=== PATIENT | male | born 1945 | race Hispanic/Latino ===

== ENCOUNTER 2016-06-13 17:20 | Inpatient (IN) | payer MEDICARE ==
[2016-06-13 17:24] VITALS: BMI 40.4
[2016-06-13 18:09] LABS: ADD MANUAL DIFF? NO
--- NOTE | 2016-06-13 18:13 | ED PDOC ---
Arrival/HPI <Jordan Perez DO - Last Filed: 06/13/16 20:26> - General Historian: Patient, Spouse - History of Present Illness Symptom Onset: Gradual Symptom Course: Worsening <VenitaJonna - Last Filed: 06/13/16 21:14> - General Chief Complaint: Shortness Of Breath Time Seen by Provider: 06/13/16 17:54 - History of Present Illness Narrative History of Present Illness (Text): 06/13/16 18:30 70yo M w h/o CHF (EF 50% on cath 07/2014), CAF on Coumadin, Hypertension, NIDDM2 , mild thalamic hemorrhage in the past not requiring surgical intervention, mod , EtOH abuse presented to ER with 2 month h/o increasingly worsening SOB. Patient and , who is at bedside, admit to clear productive cough during this time. Patient admits to chronic orthopnea, states he sleeps sitting in chair. He admits to BL LE swelling x 3 years, states has not worsened in the past 1-2 months. Denies CP, abd pain, n/v/d/c, fevers, chills, rashes, headache , dizziness, confusion, palpitations. (Jonna Nathan) Past Medical History - Provider Review Nursing Documentation Reviewed: Yes - Travel History Have you recently traveled outside [place] w/in the past 3 mons?: No - Cardiac Hx Cardiac Disorders: Yes Hx Hypertension: Yes Hx Pacemaker: No - Pulmonary Hx Respiratory Disorders: Yes Hx Asthma: Yes Hx Chronic Obstructive Pulmonary Disease (COPD): Yes - Neurological Hx Neurological Disorder: No Hx Paralysis: No - HEENT Hx HEENT Disorder: No Hx Cataracts: No - Renal Hx Renal Disorder: No - Endocrine/Metabolic Hx Endocrine Disorders: Yes Hx Diabetes Mellitus Type 2: Yes - Hematological/Oncological Hx Blood Disorders: No Hx Blood Transfusions: No - Integumentary Hx Dermatological Disorder: No - Musculoskeletal/Rheumatological Hx Musculoskeletal Disorders: No - Gastrointestinal Hx Gastrointestinal Disorders: No - Genitourinary/Gynecological Hx Genitourinary Disorders: No - Psychiatric Hx Psychophysiologic Disorder: No Hx Anxiety: No Hx Emotional Abuse: No Hx Physical Abuse: No Hx Substance Use: No - Surgical History Hx Cataract Extraction: Yes Hx Joint Replacement: Yes Hx Orthopedic Surgery: Yes - Anesthesia Hx Anesthesia Reactions: No Hx Malignant Hyperthermia: No - Suicidal Assessment Feels Threatened In Home Enviroment: No <Jonna Nathan - Last Filed: 06/13/16 21:14> Family/Social History - Physician Review Nursing Documentation Reviewed: Yes Family/Social History: Diabetes, Hypertension, CAD/[place] Smoking Status: Former Smoker (quit ~30 years ago) Hx Alcohol Use: Yes (social) Frequency of alcohol use: Socially Hx Substance Use: No Hx Substance Use Treatment: No <Jonna Nathan - Last Filed: 06/13/16 21:14> Allergies/Home Meds <Chris Jordan - Last Filed: 06/13/16 20:26> <Jonna Nathan - Last Filed: 06/13/16 21:14> Allergies/Adverse Reactions: Allergies No Known Allergies Allergy (Verified 06/13/16 17:24) Home Medications: Home Meds Medication Instructions Recorded Confirmed Furosemide [Lasix] 80 mg PO DAILY 07/31/14 06/13/16 Warfarin [Coumadin] 7.5 mg PO DAILY 07/31/14 06/13/16 Metformin HCl [Glucophage] 1,000 mg PO BID 06/13/16 06/13/16 Metoprolol Tartrate [Lopressor] 25 mg PO DAILY 06/13/16 06/13/16 Simvastatin [Zocor] 40 mg PO DAILY 06/13/16 06/13/16 Review of Systems - Physician Review All systems were reviewed & negative as marked: Yes - Review of Systems Constitutional: absent: Fatigue, Fevers Eyes: Normal. absent: Vision Changes ENT: Normal Respiratory: SOB, Cough, Sputum (clear) Cardiovascular: Edema (BL LE edema, chronic, no changes x 3 years), ESPINO, Orthopnea (sleeps in chair). absent: Chest Pain, Palpitations, Calf Pain Gastrointestinal: absent: Abdominal Pain, Constipation, Diarrhea, Nausea, Vomiting, Hematochezia, Hematemesis Genitourinary Male: Normal. absent: Dysuria, Frequency Musculoskeletal: Back Pain (low back -- mild, chronic, no changes). absent: Neck Pain Skin: Skin Lesions (heamgioma L forearm). absent: Rash, Laceration Neurological: Normal. absent: Headache, Dizziness Endocrine: absent: Diaphoresis Hemo/Lymphatic: Normal Psychiatric: Normal <Jonna Nathan - Last Filed: 06/13/16 21:14> Physical Exam Vital Signs Reviewed: Yes Temperature: Afebrile Blood Pressure: Hypertensive Pulse: Tachycardic Respiratory Rate: Normal Appearance: Positive for: Non-Toxic, Comfortable Pain Distress: None Mental Status: Positive for: Alert and Oriented X 3 - Systems Exam Head: Present: Atraumatic, Normocephalic Pupils: Present: PERRL Extroacular Muscles: Present: EOMI Conjunctiva: Present: Normal. No: Icteric Mouth: Present: Moist Mucous Membranes Neck: Present: Normal Range of Motion. No: Meningeal Signs, JVD Respiratory/Chest: Present: Decreased Breath Sounds, Rales (BL LL L>R). No: Clear to Auscultation, Respiratory Distress, Accessory Muscle Use Cardiovascular: Present: Irregular Rhythm (a fib rate 110s), Tachycardic Abdomen: Present: Normal Bowel Sounds, Other (obese). No: Tenderness, Peritoneal Signs, Rebound, Guarding Upper Extremity: Present: Normal Inspection. No: Cyanosis, Edema Lower Extremity: Present: Normal Inspection, Edema (3+ BL LE pitting edema). No : CALF TENDERNESS Neurological: Present: GCS=15, CN II-XII Intact, Speech Normal Skin: Present: Warm, Dry, Normal Color, Other (LUE hemagioma) Psychiatric: Present: Alert, Oriented x 3, Normal Insight, Normal Concentration <Jonna Nathan - Last Filed: 06/13/16 21:14> Vital Signs Temp Pulse Resp BP Pulse Ox 06/13/16 19:10 97 H 25 H 166/102 H 95 06/13/16 17:42 24 99 06/13/16 17:32 98.5 F 108 H 20 154/106 H 95 Medical Decision Making <Jordan Perez DO - Last Filed: 06/13/16 20:26> Re-evaluation Time: 20:05 Reassessment Condition: Re-examined, Improved - Lab Interpretations I have reviewed the lab results: Yes - EKG Interpretation Interpreted by ED Physician: Yes Type: 12 lead EKG <Jonna Nathan - Last Filed: 06/13/16 21:14> ED Course and Treatment: A 70 year old male with shortness of breath. In agreement with resident note, which includes further HPI details. Patient was seen and evaluated with resident , came up with plan and treatment together. (Jordan Perez DO) 06/13/16 18:56 70 yo M w h/o NIDDM2, CHF, COPD, previous hemorrhagic thalamic CVA, CAF on Coumadin, Hypertension presents with 2 month h/o worsening SOB. Labs, CXR, EKG. (Jonna Nathan) - Lab Interpretations Lab Results: 06/13/16 17:35 06/13/16 17:35 Lab Results 06/13/16 18:20: PT 23.4 H, INR 2.17 H, APTT 36.4 H 06/13/16 17:35: Sodium 142, Potassium 5.0, Chloride 107, Carbon Dioxide 24, Anion Gap 16, BUN 29 H, Creatinine 1.2, Est GFR ( Amer) > 60, Est GFR ( Non-Af Amer) > 60, Random Glucose 117 H, Calcium 9.5, Magnesium 1.9, Total Bilirubin 1.1, AST 32, ALT 41, Alkaline Phosphatase 159 H, Lactate Dehydrogenase 521, Total Creatine Kinase 57, Troponin I 0.05, NT-Pro-B Natriuret Pep 6250 H, Total Protein 8.6 H, Albumin 4.6, Globulin 4.0, Albumin/ Globulin Ratio 1.2 06/13/16 17:35: Urine Color Yellow, Urine Appearance Sl cloudy, Urine pH 6.0, Ur Specific Siler >= 1.030, Urine Protein >=300 H, Urine Glucose (UA) Negative , Urine Ketones Negative, Urine Blood Small H, Urine Nitrate Negative, Urine Bilirubin Negative, Urine Urobilinogen 0.2, Ur Leukocyte Esterase Negative, Urine RBC 2 - 5, Urine WBC 0 - 2, Ur Epithelial Cells None, Urine Bacteria Large 06/13/16 17:35: WBC 8.4, RBC 4.12, Hgb 13.0 L, Hct 39.6 L, MCV 96.1, MCH 31.6, MCHC 32.8, RDW 14.6 H, Plt Count 192, MPV 10.4, Gran % 63.9, Lymph % (Auto) 20.2 L, [place] % (Auto) 7.1 H, Eos % (Auto) 7.7 H, Baso % (Auto) 1.1, Gran # 5.35 , Lymph # 1.7, [place] # 0.6, Eos # 0.6, Baso # 0.09 06/13/16 15:00: Alcohol, Quantitative < 10 - RAD Interpretation Radiology Orders: 06/13/16 17:55 CHEST PORTABLE [RAD] Stat - EKG Interpretation EKG Interpretation (Text): 06/13/16 21:12 A fib RVR rate 111bpm, nonspecific ST/T changes (Jonna Nathan) - Medication Orders Current Medication Orders: Discontinued Medications Furosemide (Lasix) 40 mg IVP STAT STA Stop: 06/13/16 19:00 Last Admin: 06/13/16 19:11 Dose: 40 mg - PA / DATA ANALYSIS MANAGER / Resident Statement CAESAR has reviewed & agrees with the documentation as recorded. / has examined the patient and agrees with the treatment plan. - Scribe Statement The provider has reviewed the documentation as recorded by the Scribe <Jordan Perez DO - Last Filed: 06/13/16 20:26> - PA / DATA ANALYSIS MANAGER / Resident Statement CAESAR has reviewed & agrees with the documentation as recorded. CAESAR has examined the patient and agrees with the treatment plan. <Jonna Nathan - Last Filed: 06/13/16 21:14> - Scribe Statement Aubrie Becker Provider Scribe Attestation: All medical record entries made by the Scribe were at my direction and personally dictated by me. I have reviewed the chart and agree that the record accurately reflects my personal performance of the history, physical exam, medical decision making, and the department course for this patient. I have also personally directed, reviewed, and agree with the discharge instructions and disposition. (Jordan Perez DO) Disposition/Present on Arrival <Jordan Perez DO - Last Filed: 06/13/16 20:26> - Present on Arrival Any Indicators Present on Arrival: No History of DVT/PE: No History of Uncontrolled Diabetes: No Urinary Catheter: No History of Decub. Ulcer: No History Surgical Site Infection Following: None - Disposition Have Diagnosis and Disposition been Completed?: Yes Disposition Time: 19:00 Patient Plan: Admission <Jonna Nathan - Last Filed: 06/13/16 21:14> - Disposition Diagnosis: CHF exacerbation Disposition: HOSPITALIZED Patient Problems: Current Active Problems Problem Status Onset CHF exacerbation Acute Condition: FAIR Discharge Instructions (ExitCare): Heart Failure (ED) Referrals: Martin Jones MD [Primary Care Provider] - Follow up with primary
[2016-06-13 18:33] LABS: URINE BILIRUBIN NEGATIVE (NEGATIVE); URINE BLOOD SMALL (NEGATIVE); URINE GLUCOSE (UA) NEGATIVE (NEGATIVE); URINE KETONE NEGATIVE (NEGATIVE); URINE LEUKOCYTE ESTERASE NEGATIVE Leu/uL (NEGATIVE); URINE PROTEIN >=300 mg/dL (<30 mg/dL); URINE UROBILINOGEN 0.2 E.U./dL (<1 E.U./dL)
[2016-06-13 18:35] LABS: URINE APPEARANCE SL CLOUDY (CLEAR); URINE COLOR YELLOW (YELLOW)
[2016-06-13 18:40] LABS: BASO # 0.09 K/mm3 (0.0-2.0); BASO % 1.1 % (0.0-3.0); EOS # 0.6 (0.0-0.7); EOS % 7.7 % (1.5-5.0); GRAN # 5.35 (1.4-6.5); GRAN % 63.9 % (50.0-68.0); HEMATOCRIT 39.6 % (42.0-52.0); LYMPH # 1.7 (1.2-3.4); LYMPH % 20.2 % (22.0-35.0); MEAN CELL VOLUME 96.1 fL (80.0-105.0); MEAN CORPUSCULAR HEMOGLOBIN 31.6 pg (25.0-35.0); MEAN CORPUSCULAR HGB CONC 32.8 g/dl (31.0-37.0); MEAN PLATELET VOLUME 10.4 fl (7.0-11.0); MONO # 0.6 (0.1-0.6); MONO % 7.1 % (1.0-6.0); PLATELET COUNT 192 10^3/uL (120.0-450.0); RED CELL DISTRIBUTION WIDTH 14.6 % (11.5-14.5); WHITE BLOOD COUNT 8.4 10^3/ul (4.5-11.0)
[2016-06-13 18:50] LABS: ALB/GLOB RATIO 1.2 (1.1-1.8); ALKALINE PHOSPHATASE 159 U/L (38-133); ALT/SGPT 41 U/L (7-56); AST/SGOT 32 U/L (15-59); BILIRUBIN,TOTAL 1.1 mg/dL (0.2-1.3); BLOOD UREA NITROGEN 29 mg/dL (7-21); CALCIUM 9.5 mg/dL (8.4-10.5); CARBON DIOXIDE 24 mmol/L (21-33); CHLORIDE 107 mmol/L (98-107); GFR AFRICAN-AMERICAN > 60; GLUCOSE,RANDOM 117 mg/dL (70-110); MAGNESIUM 1.9 mg/dL (1.7-2.2); SODIUM 142 mmol/L (132-148); TOTAL PROTEIN 8.6 g/dL (5.8-8.3); TROPONIN I 0.05 ng/mL
[2016-06-13 19:01] LABS: URINE BACTERIA LARGE (NEG); URINE WBC 0 - 2 /hpf (0-6)
[2016-06-13 20:04] LABS: INR 2.17 (0.93-1.08); PARTIAL THROMBOPLASTIN TIME 36.4 Seconds (23.7-30.8)
[2016-06-14 07:10] LABS: ADD MANUAL DIFF? NO
[2016-06-14 07:11] LABS: BASO # 0.08 K/mm3 (0.0-2.0); BASO % 1.1 % (0.0-3.0); EOS # 0.5 (0.0-0.7); GRAN # 4.74 (1.4-6.5); GRAN % 64.3 % (50.0-68.0); HEMATOCRIT 36.4 % (42.0-52.0); LYMPH # 1.4 (1.2-3.4); LYMPH % 19.5 % (22.0-35.0); MEAN CELL VOLUME 95.3 fL (80.0-105.0); MEAN CORPUSCULAR HEMOGLOBIN 31.2 pg (25.0-35.0); MEAN CORPUSCULAR HGB CONC 32.7 g/dl (31.0-37.0); MEAN PLATELET VOLUME 10.4 fl (7.0-11.0); MONO # 0.6 (0.1-0.6); MONO % 8.1 % (1.0-6.0); PLATELET COUNT 195 10^3/uL (120.0-450.0); RED CELL DISTRIBUTION WIDTH 14.6 % (11.5-14.5); WHITE BLOOD COUNT 7.4 10^3/ul (4.5-11.0)
[2016-06-14 07:35] LABS: ALB/GLOB RATIO 1.1 (1.1-1.8); ALKALINE PHOSPHATASE 130 U/L (38-133); ALT/SGPT 36 U/L (7-56); AST/SGOT 28 U/L (15-59); BILIRUBIN,TOTAL 1.4 mg/dL (0.2-1.3); BLOOD UREA NITROGEN 28 mg/dL (7-21); CALCIUM 9.3 mg/dL (8.4-10.5); CARBON DIOXIDE 25 mmol/L (21-33); CHLORIDE 106 mmol/L (98-107); GFR AFRICAN-AMERICAN > 60; GLUCOSE,RANDOM 102 mg/dL (70-110); POTASSIUM 4.4 mmol/L (3.6-5.0); SODIUM 142 mmol/L (132-148); TOTAL PROTEIN 8.2 g/dL (5.8-8.3)
--- NOTE | 2016-06-14 08:32 | RAD ---
HISTORY: SOB COMPARISON: 01/07/2013 FINDINGS: LUNGS: No active pulmonary disease. PLEURA: No significant pleural effusion identified, no pneumothorax apparent. CARDIOVASCULAR: Mild cardiomegaly. Severe vascular congestion OSSEOUS STRUCTURES: No significant abnormalities. VISUALIZED UPPER ABDOMEN: Normal. OTHER FINDINGS: None. IMPRESSION: Severe vascular congestion
--- NOTE | 2016-06-14 09:34 | CON ---
DATE: 06/14/2016 INDICATIONS: Shortness of breath, CHF. HISTORY OF PRESENT ILLNESS: This is a 70-year-old male known to me who came to the Emergency Room yesterday because of several weeks of increasing shortness of breath, weight, edema and abdominal girth. He had been reducing and eliminated his Lasix dose over the last couple of weeks. He became severely short of breath and was admitted yesterday when he arrived in the Emergency Room with congestive heart failure. He was given IV Lasix. Subsequently has diuresed and feels better this morning. He is resting in his chair on telemetry with no chest pain or shortness of breath at the moment. There was orthopnea. There was no syncope, presyncope, lightheadedness, dizziness, vertigo, fever, chills, sputum production or hemoptysis. He does complain of some right flank discomfort, but there was no abdominal pain, nausea, vomiting, diarrhea, constipation, melena. PAST MEDICAL HISTORY: Notable for mild coronary artery disease on catheterization several years ago at which time he was found to have a moderate LV dysfunction with an overall left ventricular ejection fraction of about 50% and moderate aortic stenosis. He has chronic atrial fibrillation, on warfarin. He has hypertension, diabetes, obesity, hyperlipidemia, remote stroke and knee surgery. He has a history of daily alcohol consumption. There is no history of rheumatic fever, myocardial infarction or gout. MEDICATIONS: At the time of admission include Lasix, warfarin, metformin, metoprolol, simvastatin. ALLERGIES: There are no medication allergies reported. SOCIAL HISTORY: He lives at home. He is retired. He is very sedentary. He goes to a [employer] on an almost daily basis and has several drinks per day. shanita does not smoke. FAMILY HISTORY: Noncontributory. REVIEW OF SYSTEMS: A 10-point review of systems is otherwise unremarkable except as noted above. PHYSICAL EXAMINATION: GENERAL: He is a well-developed male sitting in his chair on telemetry in no acute distress. VITAL SIGNS: Notable for atrial fibrillation with a ventricular rate of 74-108 beats per minute. He is afebrile. Last blood pressure 159/62, respirations 18- 20, O2 sat 97-100% on room air. He was negative 1400 mL overnight. LUNG DUMONT: Scattered rales at the bases. HEART: Revealed a systolic ejection murmur, irregular rhythm. PMI was not palpable. ABDOMEN: Soft, bowel sounds are present. No mass, organomegaly, tenderness, rebound, or guarding. No CVA tenderness. No palpable abdominal aortic aneurysm. EXTREMITIES: Reveals 4+ chronic edema with chronic skin changes. NEUROLOGIC: He is awake, alert and oriented. SKIN: Warm and dry. PSYCHIATRIC: Normal as to mood and affect. LABORATORY AND IMAGING: A portable chest x-ray yesterday revealed congestive heart failure and cardiomegaly. EKG is not available, but it apparently showed atrial fibrillation with a moderate ventricular response. No acute changes. I will track down his EKG for my review. Hemoglobin 11.9, hematocrit 36.4, white count normal, platelet count normal. PT 23.4, INR 2.17, PTT 36.4. Electrolytes , BUN, creatinine, blood sugars unremarkable. LFTs: Mildly elevated bilirubin. CK 57, troponin negative x 2, BNP 6250. Urinalysis is abnormal as noted. Alcohol less than 10. IMPRESSION: The patient is a 70-year-old man admitted with increasing shortness of breath, abdominal girth and edema in a setting of diminishing or not taking his daily Lasix. He has a history of daily alcohol use and known moderate cardiomyopathy, moderate aortic stenosis and mild coronary artery disease with chronic atrial fibrillation, hypertension, diabetes and a remote stroke. PLAN: At this time, I agree with current plans. He is comfortable on telemetry. He is getting IV Lasix with good urine outputs. We will continue his warfarin, metformin, Lipitor in place of simvastatin, and metoprolol. He can be out of bed. We will update his echocardiogram and we will check his lower extremities for DVT. He is on a no added salt, low saturated fat diet. He has frequently been instructed to cut down or eliminate his alcohol intake, but he is refractory to this. He will be more regular with his use of diuretics upon discharge. I will follow along with you. I will make additional recommendations based on his clinical course. Khris Knutson MD cc: [id number] TT: 06/14/2016 09:33:33 Confirmation # [id number] Dictation # [id number] melvin VELÁZQUEZ
--- NOTE | 2016-06-14 22:56 | CARD ---
APPROVED REPORT EKG Measurement Heart [id number] <Conclusion> Atrial fibrillation with rapid ventricular response with premature ventricular or aberrantly conducted complexes Left axis deviation Nonspecific ST abnormality, probably digitalis effect Abnormal ECG
[2016-06-15 06:33] LABS: INR 1.66 (0.93-1.08)
[2016-06-15 06:44] LABS: ALB/GLOB RATIO 1.1 (1.1-1.8); ALKALINE PHOSPHATASE 115 U/L (38-133); ALT/SGPT 38 U/L (7-56); AST/SGOT 29 U/L (15-59); BILIRUBIN,TOTAL 1.4 mg/dL (0.2-1.3); BLOOD UREA NITROGEN 28 mg/dL (7-21); CALCIUM 9.5 mg/dL (8.4-10.5); CARBON DIOXIDE 30 mmol/L (21-33); CHLORIDE 101 mmol/L (98-107); GFR AFRICAN-AMERICAN > 60; GLUCOSE,RANDOM 113 mg/dL (70-110); MAGNESIUM 1.7 mg/dL (1.7-2.2); POTASSIUM 3.9 mmol/L (3.6-5.0); SODIUM 142 mmol/L (132-148); TOTAL PROTEIN 8.1 g/dL (5.8-8.3)
--- NOTE | 2016-06-15 07:37 | CARD ---
APPROVED REPORT EXAM: Two-dimensional and M-mode echocardiogram with Doppler and color Doppler. INDICATION Aortic Valve Disease Dyspnea Cardiomyopathy Congestive Heart Failure 2D DIMENSIONS Left Atrium (2D)4.8 (1.6-4.0cm)IVSd1.4 (0.7-1.1cm) LVDd5.7 (3.9-5.9cm)LVOT Diameter2.0 (1.8-2.4cm) PWd1.3 (0.7-1.1cm)LVDs4.5 (2.5-4.0cm) FS (%) 21.1 %LVEF (%)42.3 (>50%) M-Mode DIMENSIONS Aortic Root3.40 (2.2-3.7cm)Aortic Cusp Exc.0.80 (1.5-2.0cm) Aortic Valve AoV Peak Ieimveig708.0cm/sAoV VTI74.7cmAO Peak GR.49mmHg LVOT Peak Qheafleo26.7cm/sLVOT VTI20.10cmAO Mean GR.27mmHg MIGEL (VMAX)0.24ao7ULA (VTI)0.84cm2 Mitral Valve E/A ratio0.0 TDI E/Lateral E'0.0E/Medial E'0.0 Tricuspid Valve TR Peak Dmaahfny384tu/sRAP [id number] Peak Gr.21mmHg [id number] LEFT VENTRICLE The left ventricle is borderline enlarged. There is mild concentric left ventricular hypertrophy. The systolic function is moderately impaired. There is global hypokinesis of the left ventricle. RIGHT VENTRICLE The right ventricle is normal size. ATRIA The left atrium is moderately dilated. The right atrium is mildly dilated. The interatrial septum is intact with no evidence for an atrial septal defect. AORTIC VALVE The aortic valve is severely calcified. There is mild aortic regurgitation. There is moderate to severe valvular aortic stenosis. MITRAL VALVE Mitral annular calcification is moderate. Mitral regurgitation is mild. TRICUSPID VALVE The tricuspid valve is normal in structure. There is mild tricuspid regurgitation. PULMONIC VALVE The pulmonary valve is normal in structure. GREAT VESSELS The aortic root is normal in size. The IVC is normal in size and collapses >50% with inspiration. PERICARDIAL EFFUSION There is no pleural effusion. There is no pericardial effusion. <Conclusion> Biatrial enlargement. Borderline LV enlargement. Mild concentric LVH. Moderate global LV hypokinesis. Moderate to severe . Mild MR. Midl AI. Mild TR.
--- NOTE | 2016-06-15 09:07 | US ---
HISTORY: Leg pain and swelling. Evaluate for DVT PHYSICIAN(S): True Burgos MD. TECHNIQUE: Duplex sonography and color-flow Doppler with graded compression were used to evaluate the deep venous systems of both lower extremities. The exam is limited by body habitus and edema. The tibial veins are not well seen FINDINGS: The visualized deep venous systems of both lower extremities are sonographically normal and compressible. Normal wave forms and augmentation are seen. There is no sonographic evidence for deep venous thrombosis in the visualized segments of both lower extremities. IMPRESSION: No sonographic evidence for deep venous thrombosis in the visualized segments of both lower extremities. Limited study.
--- NOTE | 2016-06-15 09:09 | HP ---
CHIEF COMPLAINT: Worsening shortness of breath. HISTORY OF PRESENT ILLNESS: This is a 70-year-old man I have known for approximately 1 year with atrial fibrillation, congestive heart failure, pedal edema, chronic and severe related to sleeping in a chair with feet down on a regular basis. The patient says he stopped taking his medicines including his Lasix 3-5 days ago because he felt he was urinating too much. He noticed worsening shortness of breath, increasing pedal edema. He talked to his for a day or 2 about whether he should call me or "ride it out" and finally called the office, was on his way to see me, but decided it best to go to the Emergency Room where he was seen and found in failure and admitted. He was seen early this morning by his report checker, Dr. Knutson, who knows the patient well. In the interim, diuretics had already begun and he started to feel clinically improved. PAST MEDICAL HISTORY: Significant for coronary artery disease and cardiac catheterization in 2014. He has chronic atrial fibrillation as mentioned above and is on Coumadin. He also has a history of hypertension, diabetes, obesity, hyperlipidemia and alcohol use. He had knee surgery in the past as well. HOME MEDICATIONS: Include Lasix, warfarin, metformin, metoprolol and simvastatin. ALLERGIES: He has no known allergies. HABITS: No longer smokes, but there is a history and drinks heavily, half to a quarter of vodka a day. SOCIAL HISTORY: He is , no children. He lives with his and 2 dogs. REVIEW OF SYSTEMS: Significant only for arthritis pains, but he is generally in good spirits with no complaints. PHYSICAL EXAMINATION: GENERAL: The patient was seen this Monday in room 262, bed 1, sitting out of bed in a chair, awake, alert, comfortable and in good spirits, feeling much improved after overnight 20 hours of diuresis. HEAD AND NECK: Unremarkable. Conjunctivae are pink. Mucous membranes are moist. NECK: Supple without masses. LUNGS: Show good aeration, right and left, with some basilar rales and decreased breath sounds of COPD. HEART: Irregular, atrial fibrillation, but with controlled rate. ABDOMEN: Overweight, protuberant. EXTREMITIES: Actually improved from baseline with hard, chronic brawny edema three-quarters of way up to the knees. This is a noted improvement from baseline and the patient says it is related to having slept last night in bed with his feet up. IMPRESSION: 1. Congestive heart failure due to medication non- compliance. 2. Atrial fibrillation. 3. Diabetes. 4. Hypertension. 5. Coronary artery disease. 6. Overweight. 7. Alcohol use. PLAN: Continue aggressive IV diuresis today. The patient is ambulatory, out of bed and markedly improved. He has been counseled once again on alcohol consumption and should be ready for discharge to home tomorrow. Martin Jones MD cc: [id number] TT: 06/15/2016 09:09:09 tn MTDD
--- NOTE | 2016-06-15 09:25 | US ---
PROCEDURE: HISTORY: POST VOID RESIDUAL COMPARISON: None TECHNIQUE: Transabdominal scanning of the pelvis performed to evaluate pre and postvoid residual FINDINGS: Prevoid urine volume 115 mL. Postvoid residual noted. Neither left nor right ureteral jets seen. . No bladder stones appreciated. Images of the bladder which is only minimally distended are unremarkable -this limits optimal evaluation for any bladder wall thickening. Prostate is not visualized. Technologist has noted that the patient has difficulty lying flat and feels anxious about holding his urine in the bladder any longer IMPRESSION: Prevoid urine volume 115 mL. No postvoid residual urine. Prostate not visualized as detailed
[2016-06-15] MEDS: Potassium Chloride 20 mEq/15 ml LIQ UD PO SCH (09:42)
[2016-06-15] MEDS: metOLazone 5 MG TAB PO SCH (09:43)
--- NOTE | 2016-06-15 09:43 | PN ---
DATE: 06/15/2016 SUBJECTIVE: The patient is seen sitting in a chair on telemetry. He states he feels better. His dy spnea is improved. He denies any chest pain. Peripheral edema persists. He does admit to not takin g his diuretic therapy as an outpatient. He claims compliance with sodium restriction. CURRENT MEDICATIONS: Include Coumadin, Glucophage 1000 mg b.i.d., Lasix 40 mg IV q. 12 hours, Lipito r 20 mg daily, and metoprolol 25 mg daily. OBJECTIVE: GENERAL: He is a middle-aged man who appears comfortable at rest. VITAL SIGNS: His blood pressure is 136/70 with a pulse of 80. Pulse is 80-130 in atrial fibrillatio n. Respirations are 16. HEENT: No JVD. CHEST: Diminished breath sounds at the bases. HEART: PMI displaced laterally with an irregularly irregular rhythm. A systolic murmur is present a t the base, as well as at the apex. ABDOMEN: Soft, nontender, normoactive bowel sounds. EXTREMITIES: 2+ leg edema is present. DIAGNOSTIC DATA: Echocardiogram was reviewed revealing a biatrial enlargement, borderline left ventr icular enlargement, mild concentric LVH, moderate global LV hypokinesis, moderately severe aortic [place] nosis with mild mitral, tricuspid, and aortic insufficiency. His INR is 1.66. Potassium 3.9. BUN and creatinine are 28 and 1.4. IMPRESSION: 1. Decompensated congestive heart failure, likely secondary to medical noncompliance. 2. Moderately severe aortic stenosis. 3. Moderate left ventricular dysfunction. 4. History of alcohol excess. 5. Mild coronary artery disease. RECOMMENDATIONS: Continued diuretic therapy is advised. Zaroxolyn and potassium will be added today as well. Beta-suni dose will be increased for better rate control. The need for compliance with his medications, as well as sodium and fluid restriction were discussed with him. Continued monitor ing of his aortic stenosis will be planned, currently does not appear the severity, which would warra nt the valve replacement at this time. We will continue to follow along and make further recommendat ions as appropriate. Tj Rocha MD cc: [id number] TT: 06/15/2016 09:43:06 Confirmation # [id number] Dictation # [id number] jn
[2016-06-16 00:06] VITALS: RESP 19
[2016-06-16 05:19] VITALS: TEMP 97.8; O2SAT 97
[2016-06-16 07:10] LABS: INR 1.66 (0.93-1.08)
[2016-06-16 07:21] LABS: ALB/GLOB RATIO 1.2 (1.1-1.8); BILIRUBIN,TOTAL 1.3 mg/dL (0.2-1.3); CALCIUM 9.8 mg/dL (8.4-10.5); POTASSIUM 3.8 mmol/L (3.6-5.0); TOTAL PROTEIN 9.1 g/dL (5.8-8.3)
--- NOTE | 2016-06-16 08:07 | CP.PCM.PN ---
Subjective - Date & Time of Evaluation Date of Evaluation: 06/16/16 Time of Evaluation: 07:00 - Subjective Subjective: Stable on 2R. He feels well. No CP or SOB. Short ambulations so far. He wants to go home. V/S noted. AF PE: Lungs: clear Cor.: Irreg. S1S2, GUILLERMINA Abd.: soft Ext.; chr. edema, improved Neuro.: alert WT. down 268 today. I/O= 720/3425 Labs today: INR= 1.66, Cr.= 1.5, K+= 3.8 Echo noted: mod LVD, Mod/Sev. , Mild MR, AI, TR Objective - Vital Signs/Intake and Output Vital Signs (last 24 hours): Temp Pulse Resp BP Pulse Ox 97.8 F 55 L 19 146/62 97 06/16/16 05:17 06/16/16 05:17 06/16/16 05:17 06/16/16 05:57 06/16/16 05:17 Intake and Output: 06/16/16 06/16/16 06:59 18:59 Intake Total 360 Output Total 1125 Balance -765 - Medications Medications: Current Medications Atorvastatin Calcium (Lipitor) 20 mg PO DIN [facility] Last Admin: 06/15/16 17:55 Dose: 20 mg Furosemide (Lasix) 40 mg IVP Q12H [facility] Last Admin: 06/16/16 05:57 Dose: 40 mg Metformin HCl (Glucophage) 1,000 mg PO BID [facility] Last Admin: 06/15/16 17:54 Dose: 1,000 mg Metolazone (Zaroxolyn) 5 mg PO DAILY [facility] Stop: 06/17/16 10:00 Last Admin: 06/15/16 09:43 Dose: 5 mg Metoprolol Tartrate (Lopressor) 50 mg PO BID [facility] Last Admin: 06/15/16 17:55 Dose: 50 mg Potassium Chloride (Potassium Chloride Oral Soln) 20 meq PO DAILY [facility] Stop: 06/17/16 10:00 Last Admin: 06/15/16 09:42 Dose: 20 meq Warfarin Sodium (Coumadin) 7.5 mg PO 1800 [facility] Last Admin: 06/15/16 17:54 Dose: 7.5 mg - Labs Labs: 06/14/16 07:00 06/16/16 06:30 PT 17.9 Seconds (9.9-11.8) H 06/16/16 06:30 INR 1.66 (0.93-1.08) H 06/16/16 06:30 APTT 36.4 Seconds (23.7-30.8) H 06/13/16 18:20 Assessment and Plan - Assessment and Plan (Free Text) Plan: Assessment: CHF/Medical Non-Compliance/Mod. LVD Cardiomyopathy/Possibly ETOH related Valvular Heart Disease: Mod/Sev. , Mild AI, MR,TR Chronic AF Daily ETOH Consumption. CAD, mild at cath HBP Diabetes Remote CVA Obesity Knee Surgery Plan: Increase ambulation this AM D/C planning for later today D/C or Reduce ETOH d/w him (again) Need for medication compliance d/w him Need for monitoring d/w him Need for increased physical activity and SHELL diet d/w him. Out pt follow up to be arranged. D/C meds as on admit with increase metoprolol ER 50 / day. Warfarin 10 mg. today.
[2016-06-16] MEDS: Potassium Chloride 20 mEq/15 ml LIQ UD PO SCH (10:21)
[2016-06-16] MEDS: metOLazone 5 MG TAB PO SCH (10:21)
[2016-06-16 10:22] VITALS: BP 140/67; PULSE 80
--- NOTE | 2016-06-16 13:19 | IP.NPCORE ---
Heart Failure Core Measure - Heart Failure Ejection Fraction: 40 % or Greater Left Ventricular Function to be assessed after discharge: Yes LALY Inhibitor Prescribed: No Contraindication/Reason for not providing: renal insuff Beta-Franc Prescribed: Metoprolol Succinate Angiotensin II Receptor Franc Prescribed: No Contraindication/Reason for not providing: renal insuff AnticoagulationTherapy for Atrial Fibrillation/Atrialflutter: Yes Aldosterone Antagonist Prescribed: Yes Hydralazine Nitrate Prescribed: No Contraindication/Reason for not providing: sbrady Implantable Cardioverter Defibrillator Therapy: No Contraindication/Reason for not providing: ef > 40% Cardiac Resynchronization Therapy Prescribed: Yes - Follow up Will be discharged to: Home Follow Up Date (must be within 7 days from discharge): 06/23/16 Follow Up Time: 11:00 (recommended)
--- NOTE | 2016-06-16 23:53 | DS ---
HISTORY OF PRESENT ILLNESS: The patient was seen resting comfortably out of bed in a chair in room 26 2, bed 1. He is awake, alert, clear, appropriate and looking forward to discharge home. This is a 70-year-old man who came to the Emergency Room after stopping his medicines because he thou ght he was going to the bathroom too much. After 4 or 5 days, his CHF worsened, he became more short of breath, thought about coming to the office, waited an additional day or two, then decided to come , but on his way was so short of breath, he came to the Emergency Room instead. He was in chronic at [facility] while anticoagulated with a total volume overload and CHF. He was admitted to the med/surgery t elemetry monitored floor, aggressively diuresed, losing 30 pounds that he reports, although I think t his to be an exaggeration. He also stopped drinking for the 3 days he was in the hospital with marke d improvement in his color, ambulatory ability, respirations and demeanor. He was happy, in good spi rits, looking forward to discharge to home. He has been followed by his cardiologists, Dr. Rocha and Dr. Knutson, during the course of his stay and was discharged to home on , 06/16/2016, ins tructed to continue the Lasix 80 mg a day, as well as Coumadin and all his prior medications. I will see him in the office in approximately 4 days and he will follow up with cardiology in approximately a week. FINAL DISCHARGE DIAGNOSES: 1. Congestive heart failure, volume overload. 2. Atrial fibrillation. 3. Noncompliance with medication. 4. Hypertension. 5. Alcohol use. Martin Jones MD cc: [id number] TT: 06/16/2016 23:52:34 ln
== END 2016-06-16 13:21 | disposition home or self-care (01) | DRG 293 ==
LOC: ED 17:20 → ERH 21:13 → 2RNO 23:47
PROVIDERS: ADMIT Internal Medicine; ATTEND Internal Medicine
DX: I11.0 Hypertensive heart disease with heart failure (principal); I50.9 Heart failure, unspecified; Z91.14 Patient's other noncompliance with medication regimen; I42.9 Cardiomyopathy, unspecified; I48.2 Chronic atrial fibrillation; E11.9 Type 2 diabetes mellitus without complications; E78.5 Hyperlipidemia, unspecified; I25.10 Atherosclerotic heart disease of native coronary artery without angina pectoris; I35.0 Nonrheumatic aortic (valve) stenosis; E66.9 Obesity, unspecified; Z68.39 Body mass index [BMI] 39.0-39.9, adult; Z79.01 Long term (current) use of anticoagulants; Z86.73 Personal history of transient ischemic attack (TIA), and cerebral infarction without residual deficits; Z87.891 Personal history of nicotine dependence; Z72.89 Other problems related to lifestyle

== ENCOUNTER 2017-07-13 20:42 | Emergency (ER) | payer MEDICARE ==
[2017-07-13 20:44] VITALS: BMI 40.4
[2017-07-13 21:13] VITALS: BP 114/47; RESP 18; TEMP 97.6
--- NOTE | 2017-07-13 21:40 | ED PDOC ---
Arrival/HPI <Dandre Frederick - Last Filed: 07/14/17 00:36> - General Historian: Patient - History of Present Illness Time/Duration: Prior to Arrival Symptom Onset: Sudden Activities at Onset: Rest Context: Walking, Home <Kofi Fitzpatrick - Last Filed: 07/14/17 06:10> - General Chief Complaint: Trauma Time Seen by Provider: 07/13/17 20:50 - Critical Care Narrative Critical Care (Text): 07/13/17 21:34 Patient is a 72 M with history of alcohol abuse and atrial fibrillation on coumadin, CHF, hypertsion, NIDDM who presents with complaints of fall on way to chair from bathroom. Patient states he drank about 12 glasses of scotch today. States he does not go through withdrawal symptoms. Denies trauma to head, weakness, dizziness, headache, loss of consciousness , nausea, vomiting, diarrhea, abdominal pain. (Kofi Fitzpatrick) Past Medical History - Provider Review Nursing Documentation Reviewed: Yes - Cardiac Hx Cardiac Disorders: Yes Hx Congestive Heart Failure: Yes Hx Hypertension: Yes Hx Pacemaker: No - Pulmonary Hx Respiratory Disorders: Yes Hx Asthma: Yes Hx Chronic Obstructive Pulmonary Disease (COPD): Yes - Neurological Hx Neurological Disorder: No HX Cerebrovascular Accident: Yes (2008; deficit: left leg weakness and off balance) - HEENT Hx HEENT Disorder: No Hx Cataracts: No - Renal Hx Renal Disorder: No - Endocrine/Metabolic Hx Endocrine Disorders: Yes Hx Diabetes Mellitus Type 2: Yes - Hematological/Oncological Hx Blood Disorders: No - Integumentary Hx Dermatological Disorder: No - Musculoskeletal/Rheumatological Hx Falls: No - Gastrointestinal Hx Gastrointestinal Disorders: No - Genitourinary/Gynecological Hx Genitourinary Disorders: No - Psychiatric Hx Psychophysiologic Disorder: No Hx Anxiety: No Hx Emotional Abuse: No Hx Physical Abuse: No Hx Substance Use: No - Surgical History Hx Joint Replacement: Yes (right knee replacement in 2007) Hx Orthopedic Surgery: Yes Other/Comment: Ligament surgery in right knee in the 70's - Anesthesia Hx Anesthesia Reactions: No Hx Malignant Hyperthermia: No - Suicidal Assessment Feels Threatened In Home Enviroment: No <Kofi Fitzpatrick - Last Filed: 07/14/17 06:10> Family/Social History - Physician Review Nursing Documentation Reviewed: Yes Family/Social History: Diabetes Smoking Status: Former Smoker Hx Alcohol Use: Yes (social) Hx Substance Use: No Hx Substance Use Treatment: No <Kofi Fitzpatrick - Last Filed: 07/14/17 06:10> Allergies/Home Meds <Dandre Frederick - Last Filed: 07/14/17 00:36> <Kofi Fitzpatrick - Last Filed: 07/14/17 06:10> Allergies/Adverse Reactions: Allergies No Known Allergies Allergy (Verified 06/13/16 17:24) Home Medications: Home Meds Medication Instructions Recorded Confirmed Furosemide [Lasix] 80 mg PO DAILY 07/31/14 06/13/16 Metformin HCl [Glucophage] 1,000 mg PO BID 06/13/16 06/13/16 Metoprolol Tartrate [Lopressor] 25 mg PO DAILY 06/13/16 06/13/16 Simvastatin [Zocor] 40 mg PO DAILY 06/13/16 06/13/16 Review of Systems - Physician Review All systems were reviewed & negative as marked: Yes <Dandre Frederick - Last Filed: 07/14/17 00:36> - Review of Systems Constitutional: Normal. absent: Fatigue Eyes: Normal ENT: Normal Respiratory: Normal. absent: SOB Cardiovascular: Normal. absent: Chest Pain, Palpitations, Syncope Gastrointestinal: Normal Genitourinary Male: Normal Musculoskeletal: Normal. absent: Back Pain Skin: Normal Neurological: Normal. absent: Headache, Dizziness Psychiatric: Normal <Kofi Fitzpatrick - Last Filed: 07/14/17 06:10> Physical Exam Vital Signs Reviewed: Yes Temperature: Afebrile Blood Pressure: Normal Pulse: Regular Respiratory Rate: Normal Appearance: Positive for: Well-Appearing, Non-Toxic, Comfortable Pain Distress: None Mental Status: Positive for: Alert and Oriented X 3 - Systems Exam Head: Present: Atraumatic, Normocephalic Pupils: Present: PERRL Extroacular Muscles: Present: EOMI Conjunctiva: Present: Normal Mouth: Present: Moist Mucous Membranes Neck: Present: Normal Range of Motion Respiratory/Chest: Present: Clear to Auscultation. No: Wheezes, Rhonchi Cardiovascular: Present: Normal S1, S2, Irregular Rhythm. No: Tachycardic Abdomen: Present: Normal Bowel Sounds. No: Tenderness Upper Extremity: Present: Normal Inspection. No: Edema Lower Extremity: Present: Edema. No: Normal Inspection Neurological: Present: GCS=15, CN II-XII Intact, Speech Normal Skin: Present: Warm, Normal Color Psychiatric: Present: Alert, Agitated <Kofi Fitzpatrick - Last Filed: 07/14/17 06:10> Vital Signs Temp Pulse Resp BP Pulse Ox 07/14/17 00:37 97 07/14/17 00:05 75 18 96 07/13/17 21:10 97.6 F 64 18 114/47 L 99 Medical Decision Making - Lab Interpretations I have reviewed the lab results: Yes - EKG Interpretation Interpreted by ED Physician: Yes Type: 12 lead EKG <Dandre Frederick - Last Filed: 07/14/17 00:36> - Lab Interpretations Interpretation: No sign. chg./baseline <Kofi Fitzpatrick - Last Filed: 07/14/17 06:10> ED Course and Treatment: Patient Seen With Resident: In agreement with resident note which contains more details about the patient. Patient was seen and evaluated with resident. Came up with plan and treatment together. 72 year old male presents complaining of s/p mechanical fall on his way to his chair from the bathroom. Plan: -- EKG -- Labs -- Fingerstick (Dandre Frederick) 07/13/17 23:32 CBC, CMP, EKG shows atrial fibrillation, Alcohol level 201 Discussed with patient's regarding picking him up and explicitly states that she discussed with Dr. Magdaleno and that patient is to stay until he jose up. Patient's states her girlfriend will pick patient up at 9:00 a.m. 07/13/17 24:30 had relative pick patient up from hospital, patient discharged. (Kofi Fitzpatrick) - Lab Interpretations Lab Results: 07/13/17 21:40 07/13/17 21:40 Lab Results 07/13/17 22:39: Troponin I 0.03 D 07/13/17 21:40: Alcohol, Quantitative 201 H 07/13/17 21:40: Sodium 133, Potassium 3.7, Chloride 90 L, Carbon Dioxide 20 L, Anion Gap 26 H, BUN 38 H, Creatinine 1.7 H, Est GFR ( Amer) 48, Est GFR ( Non-Af Amer) 40, Random Glucose 99, Calcium 8.5, Total Bilirubin 0.3, AST 35, ALT 30, Alkaline Phosphatase 111, Total Protein 7.8, Albumin 4.6, Globulin 3.2, Albumin/Globulin Ratio 1.4 07/13/17 21:40: WBC 7.7, RBC 3.86, Hgb 12.5 L, Hct 36.2 L, MCV 93.8, MCH 32.4, MCHC 34.5, RDW 13.5, Plt Count 180, MPV 9.6, Gran % 61.9, Lymph % (Auto) 23.8, [place] % (Auto) 6.9 H, Eos % (Auto) 6.6 H, Baso % (Auto) 0.8, Gran # 4.77, Lymph # (Auto) 1.8, [place] # (Auto) 0.5, Eos # (Auto) 0.5, Baso # (Auto) 0.06 - Scribe Statement The provider has reviewed the documentation as recorded by the Scribe <Dandre Frederick - Last Filed: 07/14/17 00:36> <Kofi Fitzpatrick - Last Filed: 07/14/17 06:10> - Scribe Statement Alpa Davis Provider Scribe Attestation: All medical record entries made by the Scribe were at my direction and personally dictated by me. I have reviewed the chart and agree that the record accurately reflects my personal performance of the history, physical exam, medical decision making, and the department course for this patient. I have also personally directed, reviewed, and agree with the discharge instructions and disposition. (Dandre Frederick) Disposition/Present on Arrival <Dandre Frederick - Last Filed: 07/14/17 00:36> - Present on Arrival Any Indicators Present on Arrival: No History of DVT/PE: No History of Uncontrolled Diabetes: No Urinary Catheter: No History of Decub. Ulcer: No History Surgical Site Infection Following: None - Disposition Have Diagnosis and Disposition been Completed?: Yes Disposition Time: 22:58 Patient Plan: Discharge <Kofi Fitzpatrick - Last Filed: 07/14/17 06:10> - Disposition Diagnosis: Alcohol abuse Disposition: HOME/ ROUTINE Condition: FAIR Additional Instructions: Lisa, thank you for letting us take care of you today. The emergency medical care you received today was directed at your acute symptoms. If you were prescribed any medication, please fill it and take as directed. It may take several days for your symptoms to resolve. Return to the Emergency Department if your symptoms worsen, do not improve, or if you have any other problems. Please contact your doctor or call one of the physicians/clinics you have been referred to that are listed on the Patient Visit Information form that is included in your discharge packet. Bring any paperwork you were given at discharge with you along with any medications you are taking to your follow up visit. Our treatment cannot replace ongoing medical care by a primary care provider (PCP) outside of the emergency department. Thank you for allowing the [facility] team to be part of your care today. If you had an X-Ray or CT scan: A Radiologist will review the ED reading if any change in treatment is needed we will contact you. If you had a blood, urine, or wound culture: It will take several days for the results, if any change in treatment is needed we will contact you. If you had an STI test: It will take 48 hours for the results. Please call after 1 week if you have not heard back. Referrals: Martin Jones MD [Primary Care Provider] - Follow up with primary Forms: [facility] ([place])
[2017-07-13 21:55] LABS: ALB/GLOB RATIO 1.4 (1.1-1.8); ALBUMIN 4.6 g/dL (3.0-4.8); CALCIUM 8.5 mg/dL (8.4-10.5)
[2017-07-13 22:00] LABS: BASO # 0.06 K/mm3 (0.0-2.0); BASO % 0.8 % (0.0-3.0); EOS # 0.5 (0.0-0.7); EOS % 6.6 % (1.5-5.0); GRAN # 4.77 (1.4-6.5); GRAN % 61.9 % (50.0-68.0); HEMOGLOBIN 12.5 g/dL (14.0-18.0); LYMPH # 1.8 (1.2-3.4); LYMPH % 23.8 % (22.0-35.0); MEAN CELL VOLUME 93.8 fl (80.0-105.0); MEAN CORPUSCULAR HEMOGLOBIN 32.4 pg (25.0-35.0); MEAN CORPUSCULAR HGB CONC 34.5 g/dl (31.0-37.0); MEAN PLATELET VOLUME 9.6 fl (7.0-11.0); MONO # 0.5 (0.1-0.6); MONO % 6.9 % (1.0-6.0); RBC 3.86 10^6/uL (3.5-6.1); RED CELL DISTRIBUTION WIDTH 13.5 % (11.5-14.5); WHITE BLOOD COUNT 7.7 10^3/ul (4.5-11.0)
[2017-07-14 00:36] VITALS: PULSE 75
[2017-07-14 00:38] VITALS: O2SAT 97
--- NOTE | 2017-07-14 19:03 | CARD ---
APPROVED REPORT EKG Measurement Heart [id number] <Conclusion> Atrial fibrillation Right bundle branch block Left anterior fascicular block Bifascicular block Minimal voltage criteria for LVH, may be normal variant Abnormal ECG
== END 2017-07-14 00:37 | disposition home or self-care (01) ==
LOC: ED 20:42
DX: F10.10 Alcohol abuse, uncomplicated (principal); I11.0 Hypertensive heart disease with heart failure; I50.9 Heart failure, unspecified; I48.91 Unspecified atrial fibrillation; Z79.01 Long term (current) use of anticoagulants; Z87.891 Personal history of nicotine dependence
CPT/HCPCS: 80053; 84484; 85025; 93005; 99284; G0480